=== PATIENT | female | born 1990 | race Caucasian/White ===

== ENCOUNTER 2018-02-02 15:13 | Inpatient (IN) | payer OTHER ==
[~2018-02-02] VITALS: Ht 157.5 cm; Wt 94.3 kg
[2018-02-03] MEDS ORDERED: OXYTOCIN 30 UNITS/LACT RINGERS 500 ML IV ONE (17:39)
[2018-02-03] MEDS ORDERED: RINGERS SOLUTION,LACTATED 1,000 ML IV PRN (17:39)
[2018-02-03] MEDS ORDERED: LIDOCAINE HCL/PF 1% 30 ML VIAL INJ PRN (17:45)
[2018-02-03] MEDS ORDERED: FentaNYL CITRATE-PF 100 MCG/2 ML VIAL IVP PRN (17:45)
[2018-02-03] MEDS ORDERED: METOCLOPRAMIDE HCL 5 MG/ML 2 ML VIAL IVP PRN (17:45)
[2018-02-03] MEDS ORDERED: CITRIC ACID/SODIUM CITRATE 30 ML SOLUTION UDCUP PO PRN (17:45)
[2018-02-03] MEDS ORDERED: RINGERS SOLUTION,LACTATED 1,000 ML IV SCH (17:50)
[2018-02-03 18:07] VITALS: BP 122/79
[2018-02-03 18:29] LABS: BASOPHILS % (AUTO) 0.4 % (0.0-2.0); EOSINOPHILS % (AUTO) 0.5 % (1.0-6.0); HEMATOCRIT 41.1 % (36-46); HEMOGLOBIN 13.9 g/dL (12.0-16.0); LYMPHOCYTES # (AUTO) 1.9 K/uL (1.0-4.8); LYMPHOCYTES % (AUTO) 21.9 % (22.0-44.0); MEAN CORPUSCULAR HEMOGLOBIN 31.5 pg (26.0-34.0); MEAN CORPUSCULAR HGB CONC 33.9 G/dL (31.0-37.0); MEAN CORPUSCULAR VOLUME 93 fL (80-100); MONOCYTES # (AUTO) 0.6 K/uL (0.1-1.0); MONOCYTES % (AUTO) 6.7 % (2.0-9.0); NEUTROPHILS # (AUTO) 6.1 K/uL (1.8-7.7); NEUTROPHILS % (AUTO) 70.5 % (40.0-70.0); PLATELET COUNT (AUTO)-OB 256 K/uL (150-450); RED BLOOD CELL COUNT(AUTO) 4.43 MIL/uL (4.00-5.20); RED CELL DISTRIBUTION WIDTH 13.6 % (11.5-14.5)
[2018-02-03] MEDS: RINGERS SOLUTION,LACTATED 1,000 ML IV SCH (18:44)
[2018-02-03] MEDS: MISOPROSTOL 25 MCG TABLET VG SCH ×2 (18:45→19:38)
[2018-02-03] MEDS ORDERED: OXYGEN THERAPY IH SCH (20:00)
[2018-02-04] MEDS: MISOPROSTOL 25 MCG TABLET VG SCH (02:05)
[2018-02-04] MEDS ORDERED: ROPIVACAINE HCL/PF 0.2% 100 ML ED ONE ×2 (05:34→12:42)
[2018-02-04] MEDS ORDERED: LIDOCAINE HCL/PF 2% 5 ML VIAL ONE (05:34)
[2018-02-04] MEDS ORDERED: OXYTOCIN 30 UNITS/LACT RINGERS 500 ML IV ONE ×2 (08:11→15:03)
[2018-02-04] MEDS ORDERED: OXYTOCIN 30 UNITS/LACT RINGERS 500 ML IV PRN (08:15)
[2018-02-04] MEDS: RINGERS SOLUTION,LACTATED 1,000 ML IV SCH ×2 (09:33→16:45)
[2018-02-04] MEDS ORDERED: FentaNYL CITRATE-PF 100 MCG/2 ML VIAL ONE (10:32)
[2018-02-04] MEDS ORDERED: BUPIVACAINE HCL/PF 0.25% 10 ML VIAL ONE (10:32)
[2018-02-04] MEDS ORDERED: BENZOCAINE 20%/MENTHOL 56 GM SPRAY CANISTER TP PRN (15:15)
[2018-02-04] MEDS ORDERED: LIDOCAINE HCL/PF 1% 30 ML VIAL INJ PRN (15:15)
[2018-02-04] MEDS ORDERED: GLYCERIN/WITCH HAZEL LEAF 40 PADS JAR TP PRN (15:15)
[2018-02-04] MEDS ORDERED: LANOLIN 7 GM OINTMENT TP PRN (15:15)
[2018-02-04] MEDS ORDERED: OxyCODONE HCL/ACETAMINOPHEN 5-325 MG TABLET PO PRN ×2 (15:15)
[2018-02-04] MEDS: IBUPROFEN 800 MG TABLET PO PRN (15:48)
[2018-02-04] MEDS: MAGNESIUM HYDROXIDE SUSPENSION 30 ML UDCUP PO PRN (22:44)
[2018-02-05 06:35] LABS: BASOPHILS % (AUTO) 0.4 % (0.0-2.0); EOSINOPHILS % (AUTO) 0.5 % (1.0-6.0); HEMATOCRIT 33.9 % (36-46); HEMOGLOBIN 11.6 g/dL (12.0-16.0); LYMPHOCYTES # (AUTO) 2.6 K/uL (1.0-4.8); LYMPHOCYTES % (AUTO) 20.9 % (22.0-44.0); MEAN CORPUSCULAR HEMOGLOBIN 32.1 pg (26.0-34.0); MEAN CORPUSCULAR HGB CONC 34.4 G/dL (31.0-37.0); MEAN CORPUSCULAR VOLUME 93 fL (80-100); MONOCYTES # (AUTO) 0.6 K/uL (0.1-1.0); MONOCYTES % (AUTO) 5.2 % (2.0-9.0); PLATELET COUNT (AUTO)-OB 197 K/uL (150-450); RED BLOOD CELL COUNT(AUTO) 3.63 MIL/uL (4.00-5.20); RED CELL DISTRIBUTION WIDTH 13.3 % (11.5-14.5)
[2018-02-05] MEDS: IBUPROFEN 800 MG TABLET PO PRN (09:07)
[2018-02-05] MEDS: MAGNESIUM HYDROXIDE SUSPENSION 30 ML UDCUP PO PRN (09:42)
[2018-02-05] MEDS ORDERED: IBUP-2070 PO ×2 (14:02→14:04)
[2018-02-05] MEDS ORDERED: PREN1TAB80 PO (14:09)
== END 2018-02-05 16:05 | disposition home or self-care (01) | DRG 775 ==
LOC: OBSVTOIN 02-03 16:10 → 4S 02-03 16:10
PROVIDERS: ADMIT Obstetrics & Gynecology; ATTEND Obstetrics & Gynecology
PROC: 10E0XZZ Delivery of Products of Conception, External Approach (ICD-10-PCS; principal; 2018-02-04)
PROC: 0KQM0ZZ Repair Perineum Muscle, Open Approach (ICD-10-PCS; 2018-02-04)
PROC: 3E0R3BZ Introduction of Anesthetic Agent into Spinal Canal, Percutaneous Approach (ICD-10-PCS; 2018-02-04)
PROC: 00HU33Z Insertion of Infusion Device into Spinal Canal, Percutaneous Approach (ICD-10-PCS; 2018-02-04)
DX: O69.81X0 Labor and delivery complicated by cord around neck, without compression, not applicable or unspecified (principal); O70.1 Second degree perineal laceration during delivery; Z37.0 Single live birth; Z3A.40 40 weeks gestation of pregnancy
CPT/HCPCS: 76805; 86850; 86900; 86901; J2590; J2795; J3010; J3490; J7120